=== PATIENT | male | born 1970 | race Two or more races ===

== ENCOUNTER 2018-10-22 00:50 | Emergency (ER) | payer MEDICAID, OTHER ==
[~2018-10-22] VITALS: Ht 172.7 cm; Wt 77.1 kg
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
[2018-10-22] MEDS ORDERED: MORPHINE SULFATE INJ 2 MG/ML DISP.SYRIN IV ONE ×2 (03:00→05:00)
[2018-10-22] MEDS ORDERED: ONDANSETRON HCL/PF 4 MG/2 ML VIAL IV ONE (03:00)
--- NOTE | 2018-10-22 03:18 | NUR ---
CALLED [facility] AND SPOKE TO EPI FOR HIGHER LEVEL OF CARE TRANSFER. WAS TOLD TO FAX OVER FACESHEET AND CT IMAGES TO [phone] AWAITING CALL BACK
[2018-10-22] MEDS ORDERED: ONDANSETRON HCL/PF 4 MG/2 ML VIAL ONE (03:24)
[2018-10-22] MEDS ORDERED: MORPHINE SULFATE INJ 4 MG/ML DISP.SYRIN ONE ×2 (03:24→04:37)
[2018-10-22 03:55] LABS: BASOPHILS # (AUTO) 0.1 /CMM (0.0-0.2); BASOPHILS % (AUTO) 0.9 % (0.0-2.0); EOSINOPHILS % (AUTO) 1.1 % (0.0-6.0); HEMATOCRIT 41 % (39-51); HEMOGLOBIN 14.1 g/dL (13.5-17.5); LYMPHOCYTES # (AUTO) 1.1 /CMM (0.8-4.8); LYMPHOCYTES % (AUTO) 14.7 % (20.0-44.0); MEAN CORPUSCULAR HGB CONC 34 g/dl (31.0-36.0); MEAN CORPUSCULAR VOLUME 88 fL (80-96); MONOCYTES # (AUTO) 1.9 /CMM (0.1-1.30); MONOCYTES % (AUTO) 24.9 % (2.0-12.0); NEUTROPHILS # (AUTO) 4.5 /CMM (1.8-8.9); NEUTROPHILS % (AUTO) 58.4 % (43.0-81.0); PLATELET COUNT (AUTO) 169 /CMM (150-450); WHITE BLOOD COUNT (AUTO) 7.6 K/uL (4.3-11.0)
[2018-10-22 04:00] LABS: CALCIUM, SERUM 8.7 mg/dL (8.5-10.1); CREATININE 0.9 mg/dL (0.6-1.3); POTASSIUM 4.1 mmol/L (3.5-5.1)
--- NOTE | 2018-10-22 04:25 | NUR ---
Pt sitting in bed asking for another dose of Morphine, partner at BS. Relayed to Dr. Muñoz.
--- NOTE | 2018-10-22 04:44 | NUR ---
Recieved a call from Benitez at [facility] and was told this pt has been accepted under Dr Knutson at [facility]. Number for nurse to nurse report is [facility] reference#: [id number]
--- NOTE | 2018-10-22 04:47 | NUR ---
Called [facility] to arrange a BLS transport to [facility]. Was given a 45-1:00 ETA. Trip#: [id number]
--- NOTE | 2018-10-22 04:58 | NUR ---
Pt notified of transfer to [facility], consent signed. Awaiting transport.
--- NOTE | 2018-10-22 05:38 | NUR ---
Called [facility] for report, spoke with MARKELL Willard. DC papers endorsed to ambulance personnel.
[2018-10-22 05:48] VITALS: BP 146/87
[2018-10-22 05:58] LABS: LYMPHOCYTES % (MANUAL) 8 % (16-48); MONOCYTES % (MANUAL) 9 % (0-11.0); NEUTROPHILS % (MANUAL) 82 (42-76); REACTIVE LYMPHOCYTES 1 % (0-0)
== END 2018-10-22 05:50 | disposition short-term general hospital (02) ==
LOC: ER 00:53
DX: S02.642A Fracture of ramus of left mandible, initial encounter for closed fracture (principal); S02.66XA Fracture of symphysis of mandible, initial encounter for closed fracture; Y04.0XXA Assault by unarmed brawl or fight, initial encounter; Y93.89 Activity, other specified; Y92.89 Other specified places as the place of occurrence of the external cause; Y99.8 Other external cause status
CPT/HCPCS: 36415; 70486; 80048; 85025; 85730; 96374; 96375; 96376; 99285; A4606; J2270 ×2; J2405; Z7610